=== PATIENT | male | born 1970 | race Caucasian/White ===

== ENCOUNTER → 2018-01-24 | Day surgery (SDC) | payer BC ==
[~2018-01-24] VITALS: Ht 180.3 cm; Wt 163.3 kg
[~2018-01-24] MED LIST: CILOXAN 5 ML5 M1 OP; CYMBALTA60 MG PO; HYDR25T PO; MOTRIN800 MG PO; PRILOSEC20 M1 PO; QUINAPRIL40 MG PO; SYNTHROID25 MCG PO; VICODIN 5/500 505 MG PO
--- NOTE | ~2018-01-24 | O ---
[place], [place] OPERATIVE NOTE NAME: ANGELINA BLEDSOE UNIT #: [id number] ROOM: DOCTOR: CHARLY HUGHES MD BIRTHDATE: [birth year] DOS: 01/24/2018 GASTROENDOSCOPIC REPORT HISTORY OF PRESENT ILLNESS: A 47-year-old patient who presented with chief complaint of blood in stool, undergone investigation. ALLERGIES: No known medication. FAMILY HISTORY: Grandfather with colonic carcinoma. PAST SURGICAL HISTORY: Right rotator cuff ear tubes. PAST MEDICAL HISTORY: Obesity, hypertension, hypothyroidism, depression, gastritis. SOCIAL HISTORY: Nonsmoker, social alcohol consumer. PROCEDURE: Today's procedure part of investigation is panendoscopy and colonoscopy. PREMEDICATION: Versed and Diprivan. SCOPE: Olympus forward-viewing gastroscope Q10 video. REPORT: After putting the patient in left lateral position and application of lubricant to the scope, the scope was introduced. Thereafter, under direct visualization, advanced through the length of esophagus without difficulty. Evidence of reflux esophagitis was noticed. Distal esophageal ulcer was appreciated. Gastric pouch was entered. A punctated antral ulcers, multiple small ulcers was noticed, blood on the surface of the ulcers were identified, margin of one was biopsied. Duodenal bulb expresses multi-superficial ulcers as well. Scope withdrawn. Biopsies obtained. Photographic series obtained. The patient extubated, tolerated procedure well. IMPRESSION: Gastritis, esophagitis. Multiple antral ulcerations. Duodenal ulcers. PLAN AND DISCUSSION: Omeprazole 40 mg 1 daily and clinical reassessment. We are going to proceed with colonoscopy. GASTROENDOSCOPIC REPORT The patient has presented with GI bleed. PROCEDURE: Today's procedure part of investigation is colonoscopy. PREMEDICATION: Versed and Diprivan. [place], [place] OPERATIVE NOTE NAME: ANGELINA BLEDSOE UNIT #: [id number] ROOM: DOCTOR: CHARLY HUGHES MD BIRTHDATE: [birth year] SCOPE: Olympus folding colonoscope 10L video. REPORT: After putting the patient in left lateral position and application of lubricant to the scope, the scope was introduced; thereafter, under direct visualization, I advanced through the length of colon without difficulty. Ileocecal valve was defined and photographed. Base of cecum explored, retained stool up to cecum was noticed. Scope was gradually withdrawn from ascending, transverse, descending colon. The patient extubated, tolerated the procedure well. IMPRESSION: Normal colonoscopic examination. PLAN AND DISCUSSION: High fiber diet. ACTIVITY: Ad raul. FOLLOWUP: As outpatient. Etiology of GI bleed, upper GI contribution from duodenal ulcers, gastric ulcers. Distal esophageal ulcers. I thank you very much indeed. CHARLY HUGHES MD CM:OPRECORD:OPERATIVE NOTE [id number] CHARLY HUGHES MD 01/24/18 1413 interface
[2018-01-24 11:20] VITALS: BP 112/69
[2018-01-24 12:35] VITALS: BP 112/66
[2018-01-24 12:49] VITALS: BP 109/73
[2018-01-24 13:06] VITALS: BP 110/80
== END ==
LOC: SDC 01-21 13:15
DX: K29.50 Unspecified chronic gastritis without bleeding (principal); K21.0 Gastro-esophageal reflux disease with esophagitis; K25.9 Gastric ulcer, unspecified as acute or chronic, without hemorrhage or perforation; K26.9 Duodenal ulcer, unspecified as acute or chronic, without hemorrhage or perforation; I10 Essential (primary) hypertension; E03.9 Hypothyroidism, unspecified; E66.09 Other obesity due to excess calories; F41.8 Other specified anxiety disorders; F32.9 Major depressive disorder, single episode, unspecified; Z98.890 Other specified postprocedural states; Z79.899 Other long term (current) drug therapy; Z80.0 Family history of malignant neoplasm of digestive organs

== ENCOUNTER 2024-04-28 13:53 | Emergency (ER) | payer BC ==
[~2024-04-28] VITALS: Ht 180.3 cm; Wt 146.1 kg
[2024-04-28] MEDS ORDERED: LISINOPRIL40 MG PO (14:48)
[2024-04-28] MEDS ORDERED: LEVOTHYROXINE200 MC2 PO (14:49)
[2024-04-28] MEDS ORDERED: HYDROCHLOROTHIA25 M1 PO (14:51)
[2024-04-28 15:30] LABS: BASO # 0.1 10*3/uL (0.0-0.1); BASO % 0.6 % (0.0-1.0); EOS # 0.2 10*3/uL (0.0-0.4); EOS % 1.9 % (1.0-4.0); HEMATOCRIT 40.8 % (42.0-52.0); LYMPH # 1.4 10*3/uL (1.3-4.4); LYMPH % 15.5 % (27.0-41.0); MEAN CELL VOLUME 89.3 fl (80.0-94.0); MEAN CORPUSCULAR HGB 30.6 pg (27.0-31.0); MEAN CORPUSCULAR HGB CONC 34.3 g/dl (33.0-37.0); MONO # 0.8 10*3/uL (0.1-1.0); MONO % 8.9 % (3.0-9.0); NEUT # 6.4 10*3/uL (2.3-7.9); NEUT % 72.8 % (47.0-73.0); PLATELET COUNT AUTOMATED 179 10*3/uL (130-400); RED BLOOD COUNT 4.57 10*6/uL (4.50-5.90); RED CELL DISTRI WIDTH 13.5 % (0-14.5); WHITE BLOOD COUNT 8.7 10*3/uL (4.8-10.8)
[2024-04-28 15:48] LABS: BUN 12 mg/dl (9-23); CHLORIDE 109 mmol/L (98-107); POTASSIUM 4.3 mmol/L (3.4-5.1)
[2024-04-28] MEDS ORDERED: amLODIPine besylate 5 MG TAB PO ONE (18:25)
[2024-04-28] MEDS ORDERED: NORVASC5 MG PO (18:25)
[2024-04-28] MEDS ORDERED: Amoxicillin/Clavulanate Pota 875 MG TAB PO ONE (18:25)
[2024-04-28] MEDS ORDERED: AMOX-CLAV 875-1 EACH PO (18:25)
== END 2024-04-28 18:37 | disposition home or self-care (01) ==
LOC: ED 13:53
PROVIDERS: Nurse Practitioner Family
DX: J32.2 Chronic ethmoidal sinusitis (principal); H66.41 Suppurative otitis media, unspecified, right ear; K21.9 Gastro-esophageal reflux disease without esophagitis; F32.A Depression, unspecified; I10 Essential (primary) hypertension; E03.9 Hypothyroidism, unspecified; Z79.899 Other long term (current) drug therapy; Z98.890 Other specified postprocedural states

== ENCOUNTER → 2025-04-17 | Outpatient (CLI) | payer BC ==
[~2025-04-17] MED LIST changes: +AMOX-CLAV 875-1 EACH PO; +HYDROCHLOROTHIA25 M1 PO; +LEVOTHYROXINE200 MC2 PO; +LISINOPRIL40 MG PO; +NORVASC5 MG PO
[2025-04-17 08:18] LABS: BASO # 0.1 10*3/uL (0.0-0.1); BASO % 0.6 % (0.0-1.0); EOS # 0.3 10*3/uL (0.0-0.4); EOS % 2.8 % (1.0-4.0); MEAN CELL VOLUME 87.7 fl (80.0-94.0); MEAN CORPUSCULAR HGB 29.8 pg (27.0-31.0); MEAN PLATELET VOLUME 9.5 fl (9.6-12.3); MONO # 1.2 10*3/uL (0.1-1.0); MONO % 10.6 % (3.0-9.0); NEUT # 7.4 10*3/uL (2.3-7.9); PLATELET COUNT AUTOMATED 253 10*3/uL (130-400); RED BLOOD COUNT 5.13 10*6/uL (4.50-5.90); RED CELL DISTRI WIDTH 13.1 % (0-14.5); WHITE BLOOD COUNT 11.1 10*3/uL (4.8-10.8)
== END | disposition home or self-care (01) ==
LOC: LAB 08:03 → RAD 08:03
PROVIDERS: ATTEND Family Medicine
DX: M25.562 Pain in left knee (principal)